=== PATIENT | female | born 1955 | race Hispanic/Latino ===

== ENCOUNTER 2017-06-10 11:08 | Outpatient (CLI) | payer BC ==
--- NOTE | 2017-06-10 12:28 | Mammography Report ---
BILATERAL MAMMOGRAM: FINDINGS: The breast tissue is heterogeneously dense, which could obscure detection of small masses (approximately 50%-75% glandular). No mass, distortion, suspicious calcification, or skin change is seen. No significant change when compared to exams dating back to 2015. CAD was utilized. IMPRESSION: Negative mammogram. There is no mammographic evidence of malignancy. RECOMMENDATION: Follow-up per ACS guidelines. BI-RADS CATEGORY: 1 = Negative ACR BI-RADS MAMMOGRAPHIC CODES: 0 = Needs additional imaging evaluation; 1 = Negative; 2 = Benign; 3 = Probably benign; 4 = Suspicious; 5 = Malignant; 6 = Known biopsy-proven malignancy COMMENT: 1. Dense breast tissue, i.e., adenosis, fibrocystic changes, etc., may obscure an underlying neoplasm. 2. Approximately 10% of cancers are not detected with mammography. 3. A negative mammography report should not delay biopsy if a clinically suspicious mass is present. COMMENT: Patient follow-up letters are generated in [employer].
--- NOTE | 2017-06-10 12:30 | Mammography Report ---
BONE DENSITY STUDY: Postmenopausal osteoporosis. DEFINITIONS: BMD = Bone Mineral Density T-score = BMD related to mean peak bone mass of young adult (mean expressed in Standard Deviation) Z-score = Age matched BMD expressed in SD World Health Organization (WHO) Diagnostic Criteria Normal T-score > -1 SD Osteopenia T-score between -1 and -2.4 SD Osteoporosis T-score -2.5 SD or below FINDINGS: The weighted average BMD of lumbar spine L1-L4 is 0.776 with a T-score of -2.5. The weighted average BMD of the left hip is 0.730 with a T-score of -1.7. The femoral neck BMD is 0.566 with a T. value score of -2.6. IMPRESSION: The patient's average T-score is diagnostic for osteoporosis and high relative risk for fracture. NOTE: BMD is not the only risk factor for fracture; also consider factors such as the patient's age, risk of falling, previous osteoporotic fracture, family history of osteoporotic fractures, current smoker, and low body weight. Lares's triangle is a region of interest in femur, predominantly of trabecular bone. It is not a true anatomic site, and [facility] does not recommend its use clinically.
== END 2017-06-10 11:09 | disposition home or self-care (01) ==
LOC: MAMMO 11:08
PROVIDERS: ATTEND Family Medicine
DX: Z12.31 Encounter for screening mammogram for malignant neoplasm of breast (principal); M81.0 Age-related osteoporosis without current pathological fracture; Z78.0 Asymptomatic menopausal state
CPT/HCPCS: 77080; G0202; 77067

== ENCOUNTER 2017-11-14 11:33 | Outpatient (CLI) | payer OTHER ==
--- NOTE | 2017-11-14 14:53 | Magnetic Resonance Report ---
FINAL REPORT EXAM: MR LE JOINT RT WO CON HISTORY: EFFUSION RIGHT KNEE TECHNIQUE: Multiplanar MRI of the right knee. No contrast administered. PRIORS: None. FINDINGS: Variable degenerative change in all 3 joint compartments, including joint space narrowing and thinning or partial denuding of articular cartilage, with slight marginal spurring in the medial and patellofemoral joint spaces. Mild subchondral cystic change noted in the lateral femoral condyle, medial tibial plateau, near tibial spines and undersurface of the patella., Bone marrow signal intensity within normal limits. No osteochondral defect or occult fracture. Anterior and posterior cruciate and medial and lateral collateral ligaments all appear grossly intact. Quadriceps and patellar tendons also intact. Mild truncation or defect and obliquely-oriented signal hyperintensity in the medial meniscus posterior horn extending to inferior cartilaginous surface. Anterior horn of medial, and lateral menisci grossly unremarkable without discrete or surfacing tear identified. Small-moderate joint effusion. Small-moderate small popliteal or Mora cyst measuring approximately 1.5 x 0.7 cm in cross-sectional diameter and 2.5 cm in craniocaudal dimension. IMPRESSION: 1. Tricompartment degenerative joint disease or osteoarthrosis, small-moderate joint effusion and popliteal or Mora cyst. 2. Findings compatible with undersurface tear in the medial meniscus posterior horn. 3. No apparent ligamentous insufficiency.
== END 2017-11-14 11:34 | disposition home or self-care (01) ==
LOC: MRI 11:33
PROVIDERS: ATTEND Internal Medicine
DX: S80.01XA Contusion of right knee, initial encounter (principal); M17.11 Unilateral primary osteoarthritis, right knee; X58.XXXA Exposure to other specified factors, initial encounter; Y93.89 Activity, other specified; Y92.89 Other specified places as the place of occurrence of the external cause; Y99.8 Other external cause status
CPT/HCPCS: 73721